=== PATIENT | female | born 1950 | race Caucasian/White ===

== ENCOUNTER → 2020-07-15 12:23 | Outpatient (CLI) | payer MEDICARE, SELFPAY ==
[2020-07-15] VITALS (8 sets, daily range): BP systolic 104–124; BP diastolic 52–67; PULSE 80–100; RESP 16–20; TEMP 36.6–37.2; O2SAT 93–98
--- NOTE | 2020-07-15 13:40 | XR_ITS ---
PROCEDURE: XR CHEST PORTABLE CLINICAL HISTORY: covid COMPARISON: No exams were available for comparison FINDINGS: There is left basilar interstitial infiltrate. This is nonspecific but is typical of COVID pneumonia. Cardiac loop recorder projects over the cardiac silhouette. There is marked aortic tortuosity and there is cardiomegaly. No definite pleural effusion. IMPRESSION: Left basilar infiltrate, cardiomegaly, cardiac loop recorder. Dictated by: Nelida Fuentes MD 07/15/2020 14:48 Nleida Fuentes MD in [facility] 07/15/2020 14:48
== END ==
PROVIDERS: PCP Family Medicine; Visit Provider Family Medicine
DX: U07.1 COVID-19 (principal)
CPT/HCPCS: 71045

== ENCOUNTER → 2020-08-12 12:35 | Outpatient (CLI) | payer MEDICARE, SELFPAY ==
--- NOTE | 2020-08-12 12:39 | XR_ITS ---
PROCEDURE: XR CHEST 2V CLINICAL HISTORY: covid followup COMPARISON: No exams were available for comparison FINDINGS: The cardiomediastinal silhouette and pulmonary vascularity are within normal limits. There is a loop recorder device present in left precordial region. Atelectatic or fibrotic changes are present in the right perihilar region in the left lower lobe not significantly changed. Upper lobes are clear. There is tortuosity of the descending thoracic aorta with increased density anterior to the lower thoracic spine which may be related to the tortuous aorta. There are degenerative changes in the thoracic spine. IMPRESSION: No change in the atelectasis or fibrosis in the right perihilar region and left lower lobe. Dictated by: César Streeter MD 08/12/2020 17:42 César Streeter MD in [facility] 08/12/2020 17:42
== END ==
PROVIDERS: PCP Family Medicine; Visit Provider Family Medicine
DX: B94.8 Sequelae of other specified infectious and parasitic diseases (principal)
CPT/HCPCS: 71046

== ENCOUNTER → 2022-01-09 06:17 | Outpatient (CLI) | payer MEDICARE, SELFPAY ==
[2022-01-09 16:12] LABS: Adenovirus,PCR Not Detected (NotDetected); Bordetella Pertussis Not Detected (NotDetected); Chlamydophila Pneumoniae, PCR Not Detected (NotDetected); Coronavirus 229E Not Detected (NotDetected); Coronavirus NL63 Not Detected (NotDetected); Coronavirus OC43 Not Detected (NotDetected); Coronovirus HKU1,PCR Not Detected (NotDetected); Human Metapneumovirus Not Detected (NotDetected); Influenza A, PCR Not Detected (NotDetected); Influenza AH1, 2009 Not Detected (NotDetected); Influenza AH1, PCR Not Detected (NotDetected); Influenza AH3,PCR Not Detected (NotDetected); Influenza B, PCR Not Detected (NotDetected); Mycoplasma Pneumoniae, PCR Not Detected (NotDetected); Parainfluenza 1, PCR Not Detected (NotDetected); Parainfluenza 2, PCR Not Detected (NotDetected); Parainfluenza 3, PCR Not Detected (NotDetected); Parainfluenza 4, PCR Not Detected (NotDetected); Respiratory Syncytial Virus Not Detected (NotDetected); Rhinovirus/Enterovirus Not Detected (NotDetected)
[2022-01-10 06:00] LABS: Coronavirus 19, PCR Detected (NotDetected)
== END ==
PROVIDERS: PCP Physician Assistant; Visit Provider Physician Assistant
DX: U07.1 COVID-19; N39.0 Urinary tract infection, site not specified; R51.9 Headache, unspecified; R09.89 Other specified symptoms and signs involving the circulatory and respiratory systems; J02.9 Acute pharyngitis, unspecified; R05.1 Acute cough; I10 Essential (primary) hypertension; Z86.73 Personal history of transient ischemic attack (TIA), and cerebral infarction without residual deficits; Z99.81 Dependence on supplemental oxygen
CPT/HCPCS: 87086; 87581; 87632; 87798; C9803; U0003; U0005

== ENCOUNTER 2025-04-20 06:33 | Day surgery (SDC) | payer MEDICARE, SELFPAY ==
[2025-04-20 06:53] VITALS: BP 153/76; PULSE 76; RESP 16; TEMP 36.1; O2SAT 96; BMI 27.3
--- NOTE | 2025-04-20 08:31 | P.OP_ITS ---
Date of procedure: 04/20/25 Pre-op Diagnosis:: Right upper extremity subcutaneous lesion/mass Post-op Diagnosis:: Same Procedure performed:: Excision subcutaneous lesion/mass of right upper extremity, excisional length 2.5 cm, simple closure Surgeon:: Sai Haro MD Anesthesia: local Estimated blood loss (mL): 3 Clinical Note:: Patient presents for excision right upper extremity lesion/mass. Patient is a pleasant 74-year-old female with history of previous CVA, hyperlipidemia, neuropathy, hypertension. She states that she felt a knot on her right upper extremity several weeks ago. She saw her primary care provider. She had an ultrasound done in [place]. When I had initially seen her in the office she stated that reportedly this reveals significant blood vessel surrounding this mass . She states that it may be somewhat tender when she presses on it. Her ultrasound report from [place] reveals apparently a 7 x 7 x 9 mm solid- appearing lesion with increased vascularity and central 2 mm cystic component. Consideration for MRI with and without contrast was suggested. I discussed possible MRI with the patient. However she would like to have this excised regardless. I feel that this may be reasonable. Even if this is an unusual lesion like a sarcoma or atypical lymph node excisional biopsy may be reasonable given its relatively small size of 7 mm. This may be amenable to being done under local anesthesia with generous local. Operative findings:: Firm subcutaneous nodule Operative note:: Consent was obtained and patient was taken to the procedure room. She was stretcher. Her arm was positioned. It was prepped and draped in the standard surgical fashion. Subcutaneous nodule was palpable marked with a skin marker. Anesthetic was infiltrated. A longitudinal incision was made 2.5 cm. Dissection was carried down through skin and superficial subcutaneous tissues where firm nodule was countered. This was dissected free from surrounding subcutaneous tissue and was. Occasional use of electrocautery was used for hemostasis. Lesion was excised in its entirety as specimen hemostasis was assured. Additional local infiltrated. Skin was closed with 4-0 nylon fashion. Sterile dressing was applied. Condition: stable Disposition: PACU Complications:: None immediately apparent
[2025-04-20 08:35] VITALS: BP 83/59; PULSE 62; RESP 18; TEMP 36.1; O2SAT 95
[2025-04-20] MEDS: LIDOCAINE 1% 20ML MDV 20 ML (08:42)
[2025-04-20 08:45] VITALS: BP 117/71; PULSE 64; RESP 18; TEMP 36.1; O2SAT 93
[2025-04-20 08:55] VITALS: BP 107/80; PULSE 58; RESP 16; TEMP 36.1; O2SAT 93
[2025-04-20 09:05] VITALS: BP 141/86; PULSE 64; RESP 17; TEMP 36.1; O2SAT 93
== END 2025-04-20 09:05 | disposition home or self-care (01) ==
PROVIDERS: PCP Nurse Practitioner Family; Visit Provider Surgery
PROC: (CPT 11401; principal; 2025-04-20 07:30)
DX: D17.21 Benign lipomatous neoplasm of skin and subcutaneous tissue of right arm (principal); M79.601 Pain in right arm; I10 Essential (primary) hypertension; E78.5 Hyperlipidemia, unspecified; Z86.73 Personal history of transient ischemic attack (TIA), and cerebral infarction without residual deficits; G62.9 Polyneuropathy, unspecified; Z88.0 Allergy status to penicillin; Z79.82 Long term (current) use of aspirin; Z79.02 Long term (current) use of antithrombotics/antiplatelets; Z79.899 Other long term (current) drug therapy; Z87.891 Personal history of nicotine dependence
CPT/HCPCS: 11401; 88304; J2003; J2795